=== PATIENT | female | born 1950 | race Caucasian/White ===

== ENCOUNTER → 2017-07-24 | Outpatient (CLI) | payer OTHER | LOC: RAD 09:40 | DX: Z12.31 Encounter for screening mammogram for malignant neoplasm of breast (principal) ==

== ENCOUNTER → 2018-07-23 | Outpatient (CLI) | payer OTHER | LOC: RAD 09:29 | DX: Z12.31 Encounter for screening mammogram for malignant neoplasm of breast (principal) ==

== ENCOUNTER → 2019-07-27 | Outpatient (CLI) | payer OTHER | LOC: BC 13:47 | DX: Z12.31 Encounter for screening mammogram for malignant neoplasm of breast (principal) ==

== ENCOUNTER → 2020-03-17 | Outpatient (CLI) | payer OTHER ==
[~2020-03-17] VITALS: Ht 165.1 cm; Wt 72.6 kg
[~2020-03-17] MED LIST: CO-ENZYME Q-1010 MG PO; LIPITOR 10 MG10 M1 PO; VITAMIN D31250 MCG PO; ZINC50 M2 PO
--- NOTE | 2020-03-17 10:44 | P ---
[facility] [place] [address] PROCEDURE REPORT Name: BARRY JUDD Room #: REG [facility]#: [id number] Admission: 03/17/20 Attend Phys: Jacob Champion MD Discharge: Date of : 50 Report #: [id number] THIS REPORT FOR: cc: Ashutosh Herrera MD, Rene P. MD Thesing, John A. MD ~ CC: Jacob Herrera BRIEF HISTORY: The patient is a 69-year-old woman with history of colon polyps. She also reports that her grandmother had colon cancer. No other family members had colon cancer. She did have a 10 mm adenoma removed from the rectum in 2010. PREOPERATIVE DIAGNOSES: High risk screening colonoscopy, history of colon polyps. POSTOPERATIVE DIAGNOSES: 1. Diminutive polyp at 25 cm. 2. Moderately severe diverticulosis coli, primarily sigmoid colon. MEDICATIONS: Deep sedation with propofol per anesthesia. SPECIMEN: Polyp from 25 cm. ESTIMATED BLOOD LOSS: 3 mL. PROCEDURE: Colonoscopy to cecum and terminal ileum with biopsy. FINDINGS: Prior to propofol sedation, procedure of colonoscopy discussed with the patient as well as potential risks and its complications. She indicates she understands and desires to proceed. DESCRIPTION OF PROCEDURE: With the patient in left lateral decubitus position, digital examination was completed, which revealed no abnormalities. Subsequently, the Olympus video colonoscope was introduced into the rectum, advanced under direct vision to the cecum. Done with minimal difficulty. Cecum was identified by the ileocecal valve and the appendiceal orifice. I was able to advance the tip of the scope into the mouth of the ileocecal valve. I could see a villous pattern, but was unable to deeply intubate. At that point, the scope was slowly withdrawn and careful circumferential views were obtained including retroflexing the scope in the ascending colon. Upon slow withdrawal of the scope, the prep was excellent. Mucosa was within normal limits, normal vascular pattern, normal light reflex. As we withdrew the scope, no abnormalities were noted until left colon was reached. In the left colon in particularly the sigmoid colon, she had moderately severe diverticular disease [address] [address] PROCEDURE REPORT Name: BARRY JUDD SUZY Room #: REG [facility]#: [id number] Admission: 03/17/20 Attend Phys: Jacob Champion MD Discharge: Date of : 50 Report #: [id number] without endoscopic evidence of diverticulitis. At 25 cm a diminutive polyp was seen and removed with biopsy forceps. It did have an adenomatous appearance. Scope was further withdrawn and no additional polyps were seen. Scope was withdrawn in the rectum. No abnormalities were seen. Upon retroflexion, no abnormalities were seen. Scope was withdrawn. The patient tolerated the procedure well. CONDITION OF THE PATIENT UPON DISCHARGE: Following procedure, the patient was drowsy, arousable, conversant and will be discharged to home when fully ambulatory. INSTRUCTIONS TO THE PATIENT AND FAMILY AT THE TIME OF DISCHARGE: One small polyp removed today. As far as family history, risk of a grandparent is minimal. We will follow up on the pathology. If it is an adenomatous, return in 5 years; if it is not adenomatous, then 10 years would be indicated. She will return to care of Dr. Ashutosh Herrera and return to see me as needed. <ELECTRONICALLY SIGNED> By: Jacob Champion MD 03/17/20 1044 [id number] [id number] Jacob Champion MD /nt
--- NOTE | 2020-03-18 16:07 | PATH ---
[facility] [address] [place] [address] PATHOLOGY RPT PROCEDURE Name: VIANCA MCKINNEY SUZY Room #: REG [facility].#: [id number] Admission: 03/17/20 Date of : 50 Discharge: Report #: [id number] Path Case #: [id number] [facility] Accession Number: [id number] . 01 Material submitted: . colon - POLYP AT 25CM . 01 Clinical history: . History of polyps, diverticulosis, colon polyp. . 02 Diagnosis: Polyp, at 25 cm, endoscopic biopsy: - Hyperplastic polyp. - Negative for dysplasia. (IUV/db; 03/18/2020) [facility] 03/18/2020 1118 Local . 02 Electronically signed: . Bonnie Elizabeth MD, Pathologist NPI- [id number] . 01 Gross description: . Received in formalin labeled "Vianca Mckinney, polyp at 25 cm" is a 0.3 x 0.3 x 0.1 cm fragment of schmitt-brown soft tissue. The specimen is submitted entirely in A1. ([facility] 03/17/2020) [facility] 03/17/2020 1537 Local . 02 Pathologist provided ICD-10: K63.5 . 02 CPT . 062117 Specimen Comment: A courtesy copy of this report has been sent to [phone] Specimen Comment: Report sent to Performed at: [address], [place] [id number] MD Jose Arellano MD Phone: [phone] Performed at: [address] [id number] MD Bonnie Elizabeth MD Phone: [phone]
== END | disposition home or self-care (01) ==
LOC: GI 10-15 19:46
PROVIDERS: ATTEND Specialist
DX: Z12.11 Encounter for screening for malignant neoplasm of colon (principal); Z86.010 Personal history of colon polyps; Z80.0 Family history of malignant neoplasm of digestive organs; K63.5 Polyp of colon; K57.30 Diverticulosis of large intestine without perforation or abscess without bleeding; Z98.890 Other specified postprocedural states; Z79.899 Other long term (current) drug therapy; Z11.59 Encounter for screening for other viral diseases; Z88.2 Allergy status to sulfonamides; Z88.0 Allergy status to penicillin
CPT/HCPCS: 62110; 62900

== ENCOUNTER → 2020-08-01 | Outpatient (CLI) | payer OTHER | LOC: BC 12:19 | PROVIDERS: ATTEND Family Medicine | DX: Z12.31 Encounter for screening mammogram for malignant neoplasm of breast (principal) ==

== ENCOUNTER → 2021-08-17 | Outpatient (CLI) | payer OTHER, MEDICARE | LOC: RAD 08:49 | PROVIDERS: ATTEND Family Medicine | DX: Z12.31 Encounter for screening mammogram for malignant neoplasm of breast (principal); N64.89 Other specified disorders of breast ==